=== PATIENT | male | born 1955 | race Two or more races ===

== ENCOUNTER 2017-06-06 15:19 | Emergency (ER) | payer MEDICAID ==
[~2017-06-06] VITALS: Ht 162.6 cm; Wt 67.1 kg
[2017-06-06 15:31] VITALS: BP 178/79
--- NOTE | 2017-06-06 15:44 | Emergency Room Report ---
History of Present Illness General Chief Complaint: Eye Problems Source: Patient (MELVIN CHESTER) Present Illness HPI The patient is a 61-year-old male with a history of diabetes and hypertension presenting for right eye change in vision. The patient states that he awoke this morning and was seeing black out of his right eye. He states that this transitioned to seeing redness of the right eye. He does admit to a 5/10 dull ache to the right eye. No known provoking or relieving factors. He went to see his primary doctor who sent him for further evaluation. He last saw his stitcher tape controlled machine 3 months ago and states evaluation was unremarkable. (MELVIN CHESTER) Allergies: Coded Allergies: No Known Allergies (Unverified , 06/06/17) Patient History Past Medical History: see triage record, DM, HTN Pertinent Family History: none Reviewed Nursing Documentation: PMH: Agreed, PSxH: Agreed (MELVIN CHESTER) Nursing Documentation-PMH Past Medical History: No History, Except For Hx Hypertension: Yes Hx Diabetes: Yes (MELVIN CHESTER) Review of Systems All Other Systems: negative except mentioned in HPI (MELVIN CHESTER) Physical Exam Vital Signs Date Time Temp Pulse Resp B/P (MAP) Pulse Ox O2 Delivery O2 Flow Rate FiO2 06/06/17 15:31 97.9 14 178/79 99 Room Air 06/06/17 15:31 71 Sp02 EP Interpretation: reviewed, normal General Appearance: no apparent distress, alert, GCS 15, non-toxic Head: normocephalic, atraumatic Eyes: bilateral eye normal inspection, bilateral eye PERRL, bilateral eye EOMI , bilateral eye visual acuity - 20/50 bilat, bilateral eye Fundiscopic - brown/ pollard pigmentation. Possible hemorrhage ENT: hearing grossly normal, normal pharynx, no angioedema, normal voice Neck: full range of motion, supple/symm/no masses Respiratory: chest non-tender, lungs clear, normal breath sounds, speaking full sentences Cardiovascular #1: regular rate, rhythm, no edema Musculoskeletal: back normal, gait/station normal, normal range of motion, non- tender Neurologic: alert, oriented x3, responsive, motor strength/tone normal, sensory intact, speech normal Psychiatric: judgement/insight normal, memory normal, mood/affect normal, no suicidal/homicidal ideation Skin: normal color, no rash, warm/dry, well hydrated (MELVIN CHESTER) Medical Decision Making PA Attestation Dr. Corcoran is my supervising physician. Patient management was discussed with my supervising physician (MELVIN CHESTER) Diagnostic Impression: Primary Impression: Vitreous hemorrhage, bilateral Additional Impression: Diabetic retinopathy Qualified Codes: E11.319 - Type 2 diabetes mellitus with unspecified diabetic retinopathy without macular edema ER Course The patient is a 61-year-old male with a history of diabetes presenting for change of vision Differential diagnosis considered not limited to: diabetic retinopathy, hemorrhage, retinal detachment, acute glaucoma PE: NAD PERRL. EOMI. No injection. No lid edema. Funduscopic exam reveals a brown/byrne discoloration inferiorly. Possible hemorrhage. OD: 20/50 OS: 20/50 Right eye IOP is [address] Lawrence who has recommended Chucky-synephrine and Cyclogyl for dilation before exam. He has examine patient and states there is bilat vitreous hemorrhage. He has told the patient to see him in his office on 06/08/2017. ER precautions given Labs Test 06/06/17 18:20 White Blood Count 5.6 K/UL (4.8-10.8) Red Blood Count 4.20 M/UL (4.70-6.10) Hemoglobin 14.1 G/DL (14.2-18.0) Hematocrit 42.4 % (42.0-52.0) Mean Corpuscular Volume 101 FL (80-99) Mean Corpuscular Hemoglobin 33.5 PG (27.0-31.0) Mean Corpuscular Hemoglobin Concent 33.2 G/DL (32.0-36.0) Red Cell Distribution Width 12.0 % (11.6-14.8) Platelet Count 130 K/UL (150-450) Mean Platelet Volume 9.9 FL (6.5-10.1) Neutrophils (%) (Auto) 47.7 % (45.0-75.0) Lymphocytes (%) (Auto) 39.8 % (20.0-45.0) Monocytes (%) (Auto) 9.0 % (1.0-10.0) Eosinophils (%) (Auto) 2.3 % (0.0-3.0) Basophils (%) (Auto) 1.2 % (0.0-2.0) Prothrombin Time 10.0 SEC (9.30-11.50) Prothromb Time International Ratio 1.0 (0.9-1.1) Activated Partial Thromboplast Time 27 SEC (23-33) Sodium Level 137 MMOL/L (136-145) Potassium Level 4.3 MMOL/L (3.5-5.1) Chloride Level 102 MMOL/L (98-107) Carbon Dioxide Level 28 MMOL/L (21-32) Anion Gap 7 mmol/L (5-15) Blood Urea Nitrogen 18 mg/dL (7-18) Creatinine 0.8 MG/DL (0.55-1.30) Estimat Glomerular Filtration Rate > 60 mL/min (>60) Glucose Level 197 MG/DL (74-106) Calcium Level 9.7 MG/DL (8.5-10.1) Total Bilirubin 0.2 MG/DL (0.2-1.0) Aspartate Amino Transf (AST/SGOT) 43 U/L (15-37) Alanine Aminotransferase (ALT/SGPT) 58 U/L (12-78) Alkaline Phosphatase 129 U/L (46-116) Total Protein 8.9 G/DL (6.4-8.2) Albumin 4.2 G/DL (3.4-5.0) Globulin 4.7 g/dL Albumin/Globulin Ratio 0.9 (1.0-2.7) Lab Results Impression Unremarkable (MELVIN CHESTER P.A.) ER Course I examined this patient and discussed with Dr. Lawrence who came in and examined the patient. (Luis E Corcoran M.D.) EKG Diagnostic Results EP Interpretation: EKG Rate: normal Rhythm: NSR ST Segments: no acute changes ASA given to the pt in ED: No PA Scribe Text EKG was reviewed and read with my supervising physician. No acute ST segment changes are seen. Normal rate and rhythm. No acute changes. (MELVIN CHESTER P.A.) Chest X-Ray Diagnostic Results Chest X-Ray Diagnostic Results : Chest X-Ray Ordered: Yes # of Views/Limited/Complete: 1 View Indication: Other - Possible Pre-Op EP Interpretation: Yes PA Xray: Interpretation reviewed, by supervising MD, and agrees with findings. Interpretation: no consolidation, no effusion, no pneumothorax, no acute cardiopulmonary disease Impression: No acute disease Electronically Signed by: Melivn Chester PA-C (MEVLIN CHESTER) Last Vital Signs Date Time Temp Pulse Resp B/P (MAP) Pulse Ox O2 Delivery O2 Flow Rate FiO2 06/06/17 15:31 97.9 71 14 178/79 99 Room Air Status: improved (MELVIN CHESTER) Disposition: HOME, SELF-CARE Condition: Improved MELVIN CHESTER Jun 06, 2017 15:44 Luis E Corcoran M.D. Jun 09, 2017 23:32
[2017-06-06] MEDS ORDERED: Proparacaine 0.5% Opth Soln 15ml RIGHT EYE ONE (15:45)
[2017-06-06 18:36] LABS: BASOPHILS % (AUTO) 1.2 % (0.0-2.0); EOSINOPHILS % (AUTO) 2.3 % (0.0-3.0); HEMATOCRIT 42.4 % (42.0-52.0); HEMOGLOBIN 14.1 G/DL (14.2-18.0); LYMPHOCYTES % (AUTO) 39.8 % (20.0-45.0); MEAN CORPUSCULAR VOLUME 101 FL (80-99); NEUTROPHILS % (AUTO) 47.7 % (45.0-75.0); PLATELET COUNT 130 K/UL (150-450); WHITE BLOOD COUNT 5.6 K/UL (4.8-10.8)
[2017-06-06 18:48] LABS: ALANINE AMINOTRANSFERASE 58 U/L (12-78); ALBUMIN 4.2 G/DL (3.4-5.0); ALBUMIN/GLOBULIN RATIO 0.9 (1.0-2.7); ALKALINE PHOSPHATASE 129 U/L (46-116); ANION GAP 7 mmol/L (5-15); ASPARTATE AMINO TRANSFERASE 43 U/L (15-37); BILIRUBIN,TOTAL 0.2 MG/DL (0.2-1.0); BLOOD UREA NITROGEN 18 mg/dL (7-18); CALCIUM 9.7 MG/DL (8.5-10.1); CARBON DIOXIDE 28 MMOL/L (21-32); CHLORIDE 102 MMOL/L (98-107); CREATININE 0.8 MG/DL (0.55-1.30); POTASSIUM 4.3 MMOL/L (3.5-5.1); SODIUM 137 MMOL/L (136-145)
[2017-06-06] MEDS ORDERED: Phenylephrine 2.5% Op 2ml Soln BOTH EYES ONE (21:30)
[2017-06-06] MEDS ORDERED: Cyclopentolate 1% Opth Sol 2ml BOTH EYES ONE (21:30)
[2017-06-06 22:22] VITALS: BP 151/84
--- NOTE | 2017-06-07 02:32 | Consultation ---
DATE OF CONSULTATION: 06/06/2017 Consultation performed in the emergency room requested by the emergency room staff doctors, Dr. Corcoran. JUSTIFICATION FOR CONSULTATION: This 61-year-old gentleman with a long history of diabetes, complained of a dark shade in the vision of the right eye. He was suspected of having a retinal detachment. BRIEF NOTE: This 61-year-old gentleman complained of a dark shadow in the vision of the right eye starting this morning. The loss of vision was painless. There were no reports of flashing lights or trauma. His past ocular history is negative for surgery or laser. He is mildly nearsighted and wears glasses. He uses no eye drops. PAST MEDICAL HISTORY: Remarkable for diabetes for at least 20 years, this is controlled on oral medications. He denies problems with his kidneys, heart, or peripheral circulation. Best vision at the time of consultation was 20/50 in the right eye and 20/30 in the left. The pressures were roughly 16 in either eye. External examination appeared normal. Confrontation dorantes were grossly full. There was a full range of extraocular movements. Penlight examination showed the pupils to be equally reactive and normal in either eye. The conjunctiva were clear without injection. The corneas were clear. There appeared to be early nuclear cataracts in either eye. Dilation was performed with Cyclogyl and lisinopril. Funduscopic examination of the right eye showed very obvious diabetic retinopathy with multiple hemorrhages in all dorantes. There was a sub-hyaloid hemorrhage extending into the vitreous temporal to fixation. The retina was detached. The left fundus showed a similar finding with the hemorrhage here principally nasally. There were multiple hemorrhages in each quadrant of the retina. No evidence of retinal detachments were seen. ASSESSMENT: Severe diabetic retinopathy, probably proliferative in both eyes with bilateral sub-hyaloidal and vitreous hemorrhages. PLAN: The patient and his family were advised of the findings and were told that no emergency surgery is indicated. They were given a card and if his insurance allows, we can see him at the office on Thursday where full staging of his disease can be made with fluorescein angiography and OCT fundus photos. He will then likely be treated with injections of Avastin as well as laser. The ER staff was notified of this and close followup is to be made for management of the patient's diabetes. Raul Lawrence M.D. DR: ALEX JOB#: [id number] CC:
--- NOTE | 2017-06-07 11:09 | Diagnostic Imaging Report ---
Indication: Cough Technique: CHEST 1 VIEW Comparison: None. Findings: The cardiomediastinal silhouette is normal. The lungs are clear. There is no evidence of pleural fluid. The bones are unremarkable. Impression: Normal chest.
--- NOTE | 2017-06-08 20:20 | Cardiology Report ---
APPROVED REPORT EKG Measurement Heart [id number] Normal sinus rhythm Right bundle branch block Abnormal ECG
--- NOTE | 2017-06-08 20:20 | Cardiology Report ---
APPROVED REPORT EKG Measurement Heart [id number] LA 150P57 [id number] Normal sinus rhythm Right bundle branch block Abnormal ECG
--- NOTE | 2017-06-08 20:20 | Cardiology Report ---
APPROVED REPORT EKG Measurement Heart [id number] VA 150P57 [id number] Normal sinus rhythm Right bundle branch block Abnormal ECG
== END 2017-06-06 22:23 | disposition home or self-care (01) ==
LOC: EMR 16:03
DX: H43.13 Vitreous hemorrhage, bilateral (principal); E11.319 Type 2 diabetes mellitus with unspecified diabetic retinopathy without macular edema; I10 Essential (primary) hypertension
CPT/HCPCS: 36415; 71010; 80053; 82962; 85025; 85610; 85730; 93005; 99284